=== PATIENT | female | born 1980 | race Two or more races ===

== ENCOUNTER 2016-11-23 09:37 | Inpatient (IN) | payer MEDICAID ==
[2016-11-23] MEDS ORDERED: Ondansetron 4 MG/2 ML SDV IV PRN (11:57)
[2016-11-23] MEDS ORDERED: Sodium Chloride 0.9% 10 ML Syringe FLUSH PRN (11:57)
--- NOTE | 2016-11-23 12:11 | PCM.LDHP ---
L&D History of Present Illness - General Date of Service: 11/23/16 Admit Problem/Dx: Patient Status Order with Admit Dx/Problem 11/23/16 11:57 Patient Status [ADT] Routine Admission Diagnosis/Problem Admission Diagnosis/Problem Source of Information: Patient History Limitations: Reports: No Limitations - Related Data Allergies/Adverse Reactions: Allergies Allergy/AdvReac Type Severity Reaction Status Date / Time No Known Allergies Allergy Verified 11/23/16 12:01 Past Medical History : 7 Para: 6 Other OB/BYN History: MORE-11/30/2016 H&P Review of Systems - Review of Systems: Review Of Systems: See Below General: Reports: No Symptoms HEENT: Reports: No Symptoms Pulmonary: Reports: No Symptoms Cardiovascular: Reports: No Symptoms Gastrointestinal: Reports: No Symptoms Genitourinary: Reports: No Symptoms Musculoskeletal: Reports: No Symptoms Skin: Reports: No Symptoms Psychiatric: Reports: No Symptoms Neurological: Reports: No Symptoms Hematologic/Lymphatic: Reports: No Symptoms Immunologic: Reports: No Symptoms L&D Exam - Exam Exam: See Below - Vital Signs Vital Signs: Last Vital Signs Temp 36.2 C 11/23/16 10:01 Pulse 56 L 11/23/16 10:01 Resp 16 11/23/16 10:01 BP 153/67 H 11/23/16 10:01 Pulse Ox 97 11/23/16 10:01 - OB Specific Movement: Active Heart Tones: Present Presentation: Vertex - Landers Score Landers Score Cervix Position: Anterior Landers Score Consistency: Soft Landers Score Effacement: 51-70% Landers Score Dilation: 3-4 cm Landers Score 's Station: -1 ,0 Landers Score Total: 10 - Exam General: Alert, Oriented HEENT: PERRLA, Conjunctiva Clear, EACs Clear, EOMI, Hearing Intact, Mucosa Moist & [place], Nares Patent, Normal Nasal Septum, Posterior Pharynx Clear, TMs Clear Neck: Supple, Trachea Midline Lungs: Clear to Auscultation, Normal Respiratory Effort Cardiovascular: Regular Rate, Regular Rhythm GI/Abdominal Exam: Normal Bowel Sounds, Soft, Non-Tender, No Organomegaly, No Distention, No Abnormal Bruit, No Mass, Pelvis Stable Genitourinary: Normal external exam, Normal bimanual exam Back Exam: Normal Inspection, Full Range of Motion Extremities: Normal Inspection, Normal Range of Motion, Non-Tender, No Pedal Edema, Normal Capillary Refill Skin: Warm, Dry, Intact Neurological: Cranial Nerves Intact, Reflexes Equal Bilateral DTR: 2+: Patella (L), Patella (R) Psychiatric: Alert, Normal Affect, Normal Mood - Patient Data Lab Results Last 24 hrs: Laboratory Results - last 24 hr 11/23/16 Range/Units 10:36 WBC 7.0 (4.5-11.0) K/uL RBC 3.92 (3.30-5.50) M/uL Hgb 10.7 L (12.0-15.0) g/dL Hct 33.0 L (36.0-48.0) % MCV 84 (80-98) fL MCH 27 (27-31) pg MCHC 32 (32-36) % Plt Count 138 L (150-400) K/uL Neut % (Auto) 66 (36-66) % Lymph % (Auto) 25 (24-44) % [place] % (Auto) 7 H (2-6) % Eos % (Auto) 1 L (2-4) % Baso % (Auto) 0 (0-1) % Result Diagrams: 11/23/16 10:36 - Problem List (1) Grand multipara in labor in third trimester SNOMED Code(s): 054933541, 781373312 ICD Code: O09.43 - SUPRVSN OF W GRAND MULTIPARITY, THIRD TRIMESTER Status: Acute Current Visit: Yes (2) SNOMED Code(s): 99841081 ICD Code: Z34.90 - ENCNTR FOR SUPRVSN OF NORMAL , UNSP, UNSP TRIMESTER Status: Acute Current Visit: Yes Qualifiers: Weeks of gestation: 39 weeks Qualified Code(s): Z3A.39 - 39 weeks gestation of Problem List Initiated/Reviewed/Updated: Yes Orders Last 24hrs: Active Orders 24 hr Category Date Time Status Patient Status [ADT] Routine ADT 11/23/16 11:57 Ordered Ambulate [RC] PER UNIT ROUTINE Care 11/23/16 11:57 Ordered Communication Order [RC] ASDIRECTED Care 11/23/16 11:57 Ordered Heart Tones [RC] PER UNIT ROUTINE Care 11/23/16 11:57 Ordered Notify Provider Vital Signs [RC] PRN Care 11/23/16 11:59 Ordered Notify Provider [RC] PRN Care 11/23/16 11:57 Ordered Up ad Lauren [RC] ASDIRECTED Care 11/23/16 11:57 Ordered VTE/DVT Education [RC] Click to Edit Care 11/23/16 11:59 Ordered Vital Signs [RC] PER UNIT ROUTINE Care 11/23/16 11:57 Ordered UA W/MICROSCOPIC [URIN] Routine Lab 11/23/16 10:36 Uncollected Acetaminophen [Tylenol] Med 11/23/16 11:57 Ordered 650 mg PO Q4H PRN Ondansetron [Zofran] Med 11/23/16 11:57 Ordered 4 mg IV Q4H PRN Oxytocin/Normal Saline [Pitocin in NS 20 Units/1,000 ML Med 11/23/16 10:45 Active ] 20 unit in 1,000 ml IV TITRATE Sodium Chloride 0.9% [Saline Flush] Med 11/23/16 11:57 Ordered 10 ml FLUSH ASDIRECTED PRN fentaNYL [Sublimaze] Med 11/23/16 11:57 Ordered 100 mcg IVPUSH Q1H PRN DVT/VTE Prophylaxis Reflex [OM.PC] Routine Oth 11/23/16 11:57 Ordered Saline Lock Insert [OM.PC] Routine Oth 11/23/16 11:57 Ordered Resuscitation Status Routine Resus Stat 11/23/16 11:57 Ordered Medication Orders Acetaminophen (Tylenol) 650 mg PO Q4H PRN PRN Reason: Pain (Mild 1-3) and fever Fentanyl (Sublimaze) 100 mcg IVPUSH Q1H PRN PRN Reason: Pain (moderate 4-6) Oxytocin/Sodium Chloride (Pitocin In Ns 20 Units/1,000 Ml) 20 unit in 1,000 mls @ 6 mls/hr IV TITRATE YAKELIN; 2 MUNITS/MIN PRN Reason: Protocol Ondansetron HCl (Zofran) 4 mg IV Q4H PRN PRN Reason: Nausea/Vomiting Sodium Chloride (Saline Flush) 10 ml FLUSH ASDIRECTED PRN PRN Reason: Keep Vein Open Assessment/Plan Comment:: 11/23/2016 36 yo here at 39 weeks gestation was here at clinic and found to be 3-4 cm dilated-sent to L&D for admit SVE-3-4/75/-1 Bishops Score-10 Labs-A positive, GBS negative, RPR nonreactive, Hep B negative, HIV negative Hgb-10.7 Platelet-138 Plan- Monitor for active labor Monitor heart tones Start pitocin per protocol Plan and anticipate vaginal delivery
[2016-11-23] MEDS: fentaNYL 100 MCG/2 ML SDV IVPUSH PRN ×4 (14:35→21:35)
--- NOTE | 2016-11-23 15:51 | PCM.PNLD ---
Labor Progress Note - VS & Meds Vital Signs: Last Vital Signs Temp 36.2 C 11/23/16 10:01 Pulse 56 L 11/23/16 10:01 Resp 16 11/23/16 11:57 BP 147/55 H 11/23/16 11:57 Pulse Ox 97 11/23/16 10:01 Active Medications: Current Medications Acetaminophen (Tylenol) 650 mg PO Q4H PRN PRN Reason: Pain (Mild 1-3) and fever Fentanyl (Sublimaze) 100 mcg IVPUSH Q1H PRN PRN Reason: Pain (moderate 4-6) Last Admin: 11/23/16 14:35 Dose: 100 mcg Oxytocin/Sodium Chloride (Pitocin In Ns 20 Units/1,000 Ml) 20 unit in 1,000 mls @ 6 mls/hr IV TITRATE YAKELIN; 2 MUNITS/MIN PRN Reason: Protocol Last Titration: 11/23/16 14:35 Dose: 9 munits/min, 27 mls/hr Ondansetron HCl (Zofran) 4 mg IV Q4H PRN PRN Reason: Nausea/Vomiting Sodium Chloride (Saline Flush) 10 ml FLUSH ASDIRECTED PRN PRN Reason: Keep Vein Open - Uterine Contractions Uterine Monitoring Mode: None in Use Contraction Frequency (min): 1.5-3 Contraction Duration (sec): 50-100 Contraction Intensity: Strong Uterine Resting Tone: Soft - Vaginal Exam Dilation (cm): 5 Effacement (Percent): 80 Station: -1 Cervical Position: Anterior Sterile Vaginal Exam Performed By: Jaja Cazares - Labor Progress (Free Text) Labor Progress: 11/23/2016 Patient SROM-amnisure positive SVE-5/80/-1 Daniela irregular FHTs category one Plan- Continue to monitor for active labor Continue to monitor FHTs Pain control per patient request Continue with Pitocin per protocol Plan and anticipate a vaginal delivery
[2016-11-23] MEDS ORDERED: Lactated Ringers 1,000 ML IV ONE ×2 (15:53→20:50)
--- NOTE | 2016-11-23 15:53 | PCM.PNLD ---
Labor Progress Note - VS & Meds Vital Signs: Last Vital Signs Temp 36.2 C 11/23/16 10:01 Pulse 56 L 11/23/16 10:01 Resp 16 11/23/16 11:57 BP 147/55 H 11/23/16 11:57 Pulse Ox 97 11/23/16 10:01 Active Medications: Current Medications Acetaminophen (Tylenol) 650 mg PO Q4H PRN PRN Reason: Pain (Mild 1-3) and fever Fentanyl (Sublimaze) 100 mcg IVPUSH Q1H PRN PRN Reason: Pain (moderate 4-6) Last Admin: 11/23/16 14:35 Dose: 100 mcg Oxytocin/Sodium Chloride (Pitocin In Ns 20 Units/1,000 Ml) 20 unit in 1,000 mls @ 6 mls/hr IV TITRATE YAKELIN; 2 MUNITS/MIN PRN Reason: Protocol Last Titration: 11/23/16 14:35 Dose: 9 munits/min, 27 mls/hr Ondansetron HCl (Zofran) 4 mg IV Q4H PRN PRN Reason: Nausea/Vomiting Sodium Chloride (Saline Flush) 10 ml FLUSH ASDIRECTED PRN PRN Reason: Keep Vein Open - Uterine Contractions Uterine Monitoring Mode: None in Use Contraction Frequency (min): 1.5-3 Contraction Duration (sec): 50-100 Contraction Intensity: Strong Uterine Resting Tone: Soft - Vaginal Exam Dilation (cm): 7-8 Effacement (Percent): 90 Station: -1 Cervical Position: Anterior Sterile Vaginal Exam Performed By: Jaja Cazares - Labor Progress (Free Text) Labor Progress: 11/23/2016 Patient jamia regularly now SVE-7-8/90/-1 FHTs category one 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
[2016-11-23] MEDS ORDERED: Ropivacaine 100 ML ONE (16:03)
--- NOTE | 2016-11-23 17:32 | ANES ---
DATE OF SERVICE: 11/23/2016 INDICATIONS: Mrs. Cassidy is a 36-year-old female patient, referred to me in the OB Department by Jaja Cazares. I am here to evaluate her for a labor epidural. This is her 7th baby and she is approximately 8 cm. She is in quite a bit of pain and would like to do a labor epidural. We worked throughout her consents and procedure through the teacher drama. TECHNIQUE: She was placed in a sitting position. Her back was prepped x3 with Betadine 1% lidocaine skin local was used. The epidural was placed at L3-L4 using a 17-gauge Tuohy needle in loss of resistance technique. The epidural had very good feel throughout. The epidural space was easily identified. There was negative CSF, negative blood, and negative paresthesias noted. Therefore, a catheter was threaded to 12 cm at the skin. There was negative CSF, negative blood, and negative paresthesias noted with the catheter. Therefore, a 3 mL of test dose of 1.5% lidocaine with epinephrine was given. This test dose was negative. The catheter was then secured with Tegaderm and tape and the patient was placed in the supine position. A 0.2% ropivacaine bolus of 10 mL was given. She had pretty decent relief from the bolus and her vital signs remained stable. Therefore, a 0.2% ropivacaine drip was started at 12 mL an hour. We will continue to monitor her throughout her labor and delivery stay. Sal Rouse CRNA /[id number]
[2016-11-23] MEDS ORDERED: Lanolin 100% Cream 40 GM Tube TOP PRN (17:33)
[2016-11-23] MEDS ORDERED: Ibuprofen 600 MG Tab PO PRN (17:33)
--- NOTE | 2016-11-23 17:54 | PCM.DEL ---
L & D Note - General Info Date of Service: 11/23/16 Mother's Due Date: 11/30/16 - Delivery Note Labor: Augmented by Oxytocin Infant Delivery Method: Spontaneous Vaginal Delivery Delivery Mode: Spontaneous Presentation: Vertex Nuchal Cord: None Anesthesia Type: Epidural Amniotic Fluid Description: Clear Episiotomy Type: None Laceration: None Placenta: Intact, Spontaneous Cord: 3 Vessels Resuscitation Needed: No [place]: Bulb Syringe, Stimulated, Warmed, [place] Used Provider: Jaja Cazares Score 1 min: 9 Score 5 min: 9 Score 10 min: 10 Second Stage Interventions: Reports: Encouragement Given, Pushing Effectively Delivery Comments (Free Text/Narrative):: 11/23/2016 36 G7 now P7 at 39 0/7 gestational weeks delivered a viable male on 11/23 @ 1720 in MATILDA position. APGARS-9/9/10, weight-8lbs 13.7oz, length-21 inches, bulb suctioned, dried and stimulated, cord double clamped by provider, and father of cut the cord- three vessel cord Placenta delivered intact, no lacerations of perineum, vagina, cervix, or rectum EBL-250ml Mother now stable with infant stable and skin to skin - General Info Date of Service: 11/23/16 Admission Dx/Problem (Free Text): Patient Status Order with Admit Dx/Problem 11/23/16 11:57 Patient Status [ADT] Routine Admission Diagnosis/Problem Admission Diagnosis/Problem Functional Status: Reports: Pain Controlled - Review of Systems General: Reports: No Symptoms HEENT: Reports: No Symptoms Pulmonary: Reports: No Symptoms Cardiovascular: Reports: No Symptoms Gastrointestinal: Reports: No Symptoms Genitourinary: Reports: No Symptoms Musculoskeletal: Reports: No Symptoms Skin: Reports: No Symptoms Neurological: Reports: No Symptoms Psychiatric: Reports: No Symptoms - Patient Data Vitals - Most Recent: Last Vital Signs Temp 36.2 C 11/23/16 10:01 Pulse 64 11/23/16 16:30 Resp 16 11/23/16 16:30 BP 142/83 H 11/23/16 16:30 Pulse Ox 97 11/23/16 16:30 Weight - Most Recent: 83.915 kg Lab Results Last 24 Hours: Laboratory Results - last 24 hr 11/23/16 11/23/16 11/23/16 Range/Units 10:36 10:36 13:12 WBC 7.0 (4.5-11.0) K/uL RBC 3.92 (3.30-5.50) M/uL Hgb 10.7 L (12.0-15.0) g/dL Hct 33.0 L (36.0-48.0) % MCV 84 (80-98) fL MCH 27 (27-31) pg MCHC 32 (32-36) % Plt Count 138 L (150-400) K/uL Neut % (Auto) 66 (36-66) % Lymph % (Auto) 25 (24-44) % [place] % (Auto) 7 H (2-6) % Eos % (Auto) 1 L (2-4) % Baso % (Auto) 0 (0-1) % Urine Color Yellow Urine Appearance Cloudy Urine pH 7.0 (4.5-8.0) Ur Specific [place] 1.010 (1.008-1.030) Urine Protein 30 H (NEGATIVE) mg/dL Urine Glucose (UA) Normal (NEGATIVE) mg/dL Urine Ketones Negative (NEGATIVE) mg/dL Urine Occult Blood Moderate (NEGATIVE) Urine Nitrite Negative (NEGATIVE) Urine Bilirubin Negative (NEGATIVE) Urine Urobilinogen Normal (NORMAL) mg/dL Ur Leukocyte Esterase Moderate (NEGATIVE) Urine RBC 5-10 H (0-5) Urine WBC 10-20 H (0-5) Ur Epithelial Cells Many Amorphous Sediment Moderate Urine Bacteria Moderate Urine Mucus Few Urine Other See note Urinalysis Comment Clue cells seen Membrane Rupture Positive H (NEGATIVE) Med Orders - Current: Current Medications Acetaminophen (Tylenol) 650 mg PO Q4H PRN PRN Reason: Pain (Mild 1-3) and fever Hydrocodone Bitart/Acetaminophen ([place] 325-5 Mg) 1 - 2 tab PO Q4H PRN PRN Reason: Pain (moderate 4-6) Emollient Ointment (Lansinoh Hpa) 1 gm TOP ASDIRECTED PRN PRN Reason: Sore Nipples Fentanyl (Sublimaze) 100 mcg IVPUSH Q1H PRN PRN Reason: Pain (moderate 4-6) Last Admin: 11/23/16 14:35 Dose: 100 mcg Ferrous Sulfate (Ferrous Sulfate) 325 mg PO BID YAKELIN Oxytocin/Sodium Chloride (Pitocin In Ns 20 Units/1,000 Ml) 20 unit in 1,000 mls @ 6 mls/hr IV TITRATE YAKELIN; 2 MUNITS/MIN PRN Reason: Protocol Last Titration: 11/23/16 14:35 Dose: 9 munits/min, 27 mls/hr Oxytocin/Sodium Chloride (Pitocin In Ns 20 Units/1,000 Ml) 20 unit in 1,000 mls @ 2,997 mls/hr IV ONETIME ONE; 999 MUNITS/MIN PRN Reason: Protocol Stop: 11/23/16 17:58 Ibuprofen (Motrin) 600 mg PO Q6H PRN PRN Reason: mild pain or fever Metronidazole (Metronidazole) 500 mg PO Q12HR YAKELIN Ondansetron HCl (Zofran) 4 mg IV Q4H PRN PRN Reason: Nausea/Vomiting Prenat Multivit/[place]/Iron/Folic Ac ( Plus Iron) 1 each PO DAILY YAKELIN Sodium Chloride (Saline Flush) 10 ml FLUSH ASDIRECTED PRN PRN Reason: Keep Vein Open Discontinued Medications Lactated Ringer's (Ringers, Lactated) 1,000 mls @ 999 mls/hr IV .BOLUS ONE Stop: 11/23/16 16:53 Ropivacaine (Naropin 0.2%) Confirm Administered Dose 100 mls @ as directed .ROUTE .STK-MED ONE Stop: 11/23/16 16:04 - Exam General: Alert, Oriented HEENT: Pupils Equal, Pupils Reactive, EOMI, Mucous Membr. Moist/[place] Neck: Supple Lungs: Clear to Auscultation, Normal Respiratory Effort Cardiovascular: Regular Rate, Regular Rhythm GI/Abdominal Exam: Normal Bowel Sounds, Soft, Non-Tender, No Organomegaly, No Distention, No Abnormal Bruit, No Mass, Pelvis Stable (Female) Exam: Normal External Exam, Normal Bimanual Exam Back Exam: Normal Inspection, Full Range of Motion Extremities: Normal Inspection, Normal Range of Motion, Non-Tender, No Pedal Edema, Normal Capillary Refill Skin: Warm, Dry, Intact Wound/Incisions: Healing Well Neurological: No New Focal Deficit Psy/Mental Status: Alert, Normal Affect, Normal Mood - Problem List & Annotations (1) Grand multipara in labor in third trimester SNOMED Code(s): 252969963, 436507837 Code(s): O09.43 - SUPRVSN OF W GRAND MULTIPARITY, THIRD TRIMESTER Status: Acute Current Visit: Yes (2) SNOMED Code(s): 40333351 Code(s): Z34.90 - ENCNTR FOR SUPRVSN OF NORMAL , UNSP, UNSP TRIMESTER Status: Acute Current Visit: Yes Qualifiers: Weeks of gestation: 39 weeks Qualified Code(s): Z3A.39 - 39 weeks gestation of (3) Bacterial vaginosis SNOMED Code(s): 119787324 Code(s): N76.0 - ACUTE VAGINITIS; B96.89 - OTH BACTERIAL AGENTS THE CAUSE OF DISEASES CLASSD ELSWHR Status: Acute Current Visit: Yes (4) Normal vaginal delivery SNOMED Code(s): 71153652 Code(s): O80 - ENCOUNTER FOR FULL-TERM UNCOMPLICATED DELIVERY Status: Acute Current Visit: Yes (5) Anemia complicating SNOMED Code(s): 18993931 Code(s): O99.019 - ANEMIA COMPLICATING , UNSPECIFIED TRIMESTER Status: Acute Current Visit: Yes - Problem List Review Problem List Initiated/Reviewed/Updated: Yes - My Orders Last 24 Hours: My Active Orders 11/23/16 10:45 Oxytocin/Normal Saline [Pitocin in NS 20 Units/1,000 ML] 20 unit in 1,000 ml IV TITRATE 11/23/16 11:57 Patient Status [ADT] Routine Ambulate [RC] PER UNIT ROUTINE Communication Order [RC] ASDIRECTED Notify Provider [RC] PRN Up ad Lauren [RC] ASDIRECTED Vital Signs [RC] PER UNIT ROUTINE Acetaminophen [Tylenol] 650 mg PO Q4H PRN Ondansetron [Zofran] 4 mg IV Q4H PRN Sodium Chloride 0.9% [Saline Flush] 10 ml FLUSH ASDIRECTED PRN fentaNYL [Sublimaze] 100 mcg IVPUSH Q1H PRN DVT/VTE Prophylaxis Reflex [OM.PC] Routine Saline Lock Insert [OM.PC] Routine Resuscitation Status Routine 11/23/16 11:59 Notify Provider Vital Signs [RC] PRN VTE/DVT Education [RC] Click to Edit 11/23/16 15:53 Local Anesthetic Infusion Pump [RC] ASDIRECTED PCEA Epidural [RC] ASDIRECTED Epidural Catheter Management [OM.PC] Routine 11/23/16 17:33 Patient Status [ADT] Routine Vital Signs [RC] PFP Acetaminophen/HYDROcodone [[place] 325-5 MG] 1 - 2 tab PO Q4H PRN Ibuprofen [Motrin] 600 mg PO Q6H PRN Lanolin [Lansinoh HPA] 1 gm TOP ASDIRECTED PRN Assess Lochia [WOMSER] Per Unit Routine Assess Uterine Involution [WOMSER] Per Unit Routine 11/23/16 17:34 Perineal Care [OM.PC] Per Unit Routine 11/23/16 17:38 Oxytocin/Normal Saline [Pitocin in NS 20 Units/1,000 ML] 20 unit in 1,000 ml IV ONETIME 11/23/16 17:45 metroNIDAZOLE 500 mg PO Q12HR 11/23/16 21:00 Ferrous Sulfate 325 mg PO BID 11/24/16 06:00 CBC W/O DIFF,HEMOGRAM [HEME] Routine 11/24/16 09:00 Vit with Ca/FA/Iron [ Plus Iron] 1 each PO DAILY - Assessment Assessment:: 11/23/2016 Normal Spontaneous Vaginal Delivery Fundus Firm Planning on Bacterial vaginosis Grand multip and parity Anemia in - Plan Plan:: 11/23/2016 36 yo here at 39 weeks gestation was here at clinic and found to be 3-4 cm dilated-sent to L&D for admit SVE-3-4/75/-1 Bishops Score-10 Labs-A positive, GBS negative, RPR nonreactive, Hep B negative, HIV negative Hgb-10.7 Platelet-138 Plan- Monitor for active labor Monitor heart tones Start pitocin per protocol Plan and anticipate vaginal delivery 11/23/2016 Routine Cares Support and Encourage Iron for anemia start tonight Antibiotic for BV start tonight Plan discharge in 24-48hrs per patient request
[2016-11-23] MEDS: metroNIDAZOLE 250 MG Tab PO SCH (18:28)
[2016-11-23] MEDS: Acetaminophen/HYDROcodone 325-5 MG Tab PO PRN (20:43)
[2016-11-23] MEDS ORDERED: Misoprostol 200 MCG Tab RECTAL ONE (20:59)
[2016-11-23] MEDS ORDERED: Misoprostol 200 MCG Tab ONE (21:40)
[2016-11-23] MEDS ORDERED: Carboprost Tromethamine 250 MCG/1 ML Amp ONE (21:41)
[2016-11-23] MEDS ORDERED: Methylergonovine 0.2 MG/1 ML Amp IM STA (21:42)
[2016-11-23] MEDS: Lactated Ringers 1,000 ML IV SCH (21:57)
--- NOTE | 2016-11-23 22:10 | PCM.PN ---
- General Info Date of Service: 11/23/16 Admission Dx/Problem (Free Text): Called to see patient for hemorrhage at approximately 2100. Patient delivered earlier today via . When nurses went to move her to room they noted significant bleeding in excess of 1 liter. CBC and Type and Cross for 2 units PRBC were drawn. Her hgb was 8 with active bleeding and platelets > 100K. hemorrhage protocol initiated with bolus 1 L LR and a we obtained a second large bore IV. She was not noted to have HTN or asthma. She was given cytotec 600 mcg pr. Her vagina and uterus were rapidly explored. Her uterus was at umbilicus +2 and boggy, but did firm up with massage. Approximately 800 ml of clots were removed from the uterus. Pitocin 20 units per 1 L was infused through her second IV. Her bleeding gradually slowed. She was given methergine 0.2 mg IM. We reviewed with Malia the patient what was happening through a [place] phone mannequin molder. She called her and he came in. She did receive Fentanyl for pain control after initial vaginal exploration. There was not other trauma to the vaginal vault. Quick look US did not reveal any retained tissue in the uterus. Throughout evaluation and resuscitation her SBP was 90-120. She was alert while lying flat. Functional Status: Reports: New Symptoms - Review of Systems General: Reports: No Symptoms HEENT: Reports: No Symptoms Pulmonary: Reports: No Symptoms Cardiovascular: Reports: No Symptoms Gastrointestinal: Reports: No Symptoms Genitourinary: Reports: Pain, Other (vaginal bleeding) Musculoskeletal: Reports: No Symptoms Skin: Reports: No Symptoms Neurological: Reports: No Symptoms Psychiatric: Reports: No Symptoms - Patient Data Vitals - Most Recent: Last Vital Signs Temp 98.5 F 11/23/16 19:30 Pulse 96 11/23/16 19:30 Resp 18 11/23/16 19:30 BP 144/71 H 11/23/16 19:30 Pulse Ox 96 11/23/16 19:30 Weight - Most Recent: 185 lb Lab Results Last 24 Hours: Laboratory Results - last 24 hr 11/23/16 11/23/16 11/23/16 Range/Units 10:36 10:36 13:12 WBC 7.0 (4.5-11.0) K/uL RBC 3.92 (3.30-5.50) M/uL Hgb 10.7 L (12.0-15.0) g/dL Hct 33.0 L (36.0-48.0) % MCV 84 (80-98) fL MCH 27 (27-31) pg MCHC 32 (32-36) % Plt Count 138 L (150-400) K/uL Neut % (Auto) 66 (36-66) % Lymph % (Auto) 25 (24-44) % [place] % (Auto) 7 H (2-6) % Eos % (Auto) 1 L (2-4) % Baso % (Auto) 0 (0-1) % Urine Color Yellow Urine Appearance Cloudy Urine pH 7.0 (4.5-8.0) Ur Specific [place] 1.010 (1.008-1.030) Urine Protein 30 H (NEGATIVE) mg/dL Urine Glucose (UA) Normal (NEGATIVE) mg/dL Urine Ketones Negative (NEGATIVE) mg/dL Urine Occult Blood Moderate (NEGATIVE) Urine Nitrite Negative (NEGATIVE) Urine Bilirubin Negative (NEGATIVE) Urine Urobilinogen Normal (NORMAL) mg/dL Ur Leukocyte Esterase Moderate (NEGATIVE) Urine RBC 5-10 H (0-5) Urine WBC 10-20 H (0-5) Ur Epithelial Cells Many Amorphous Sediment Moderate Urine Bacteria Moderate Urine Mucus Few Urine Other See note Urinalysis Comment Clue cells seen Membrane Rupture Positive H (NEGATIVE) Urine Opiates Screen (NEGATIVE) Ur Oxycodone Screen (NEGATIVE) Urine Methadone Screen (NEGATIVE) Ur Propoxyphene Screen (NEGATIVE) Ur Barbiturates Screen (NEGATIVE) Ur Tricyclics Screen (NEGATIVE) Ur Phencyclidine Scrn (NEGATIVE) Ur Amphetamine Screen (NEGATIVE) U Methamphetamines Scrn (NEGATIVE) Urine MDMA Screen (NEGATIVE) U Benzodiazepines Scrn (NEGATIVE) U Cocaine Metab Screen (NEGATIVE) U Marijuana (THC) Screen (NEGATIVE) 11/23/16 11/23/16 Range/Units 20:10 20:52 WBC 11.9 H (4.5-11.0) K/uL RBC 3.17 L (3.30-5.50) M/uL Hgb 8.6 L D (12.0-15.0) g/dL Hct 26.7 L (36.0-48.0) % MCV 84 (80-98) fL MCH 27 (27-31) pg MCHC 32 (32-36) % Plt Count 136 L (150-400) K/uL Neut % (Auto) (36-66) % Lymph % (Auto) (24-44) % [place] % (Auto) (2-6) % Eos % (Auto) (2-4) % Baso % (Auto) (0-1) % Urine Color Urine Appearance Urine pH (4.5-8.0) Ur Specific [place] (1.008-1.030) Urine Protein (NEGATIVE) mg/dL Urine Glucose (UA) (NEGATIVE) mg/dL Urine Ketones (NEGATIVE) mg/dL Urine Occult Blood (NEGATIVE) Urine Nitrite (NEGATIVE) Urine Bilirubin (NEGATIVE) Urine Urobilinogen (NORMAL) mg/dL Ur Leukocyte Esterase (NEGATIVE) Urine RBC (0-5) Urine WBC (0-5) Ur Epithelial Cells Amorphous Sediment Urine Bacteria Urine Mucus Urine Other Urinalysis Comment Membrane Rupture (NEGATIVE) Urine Opiates Screen Negative (NEGATIVE) Ur Oxycodone Screen Negative (NEGATIVE) Urine Methadone Screen Negative (NEGATIVE) Ur Propoxyphene Screen Negative (NEGATIVE) Ur Barbiturates Screen Negative (NEGATIVE) Ur Tricyclics Screen Negative (NEGATIVE) Ur Phencyclidine Scrn Negative (NEGATIVE) Ur Amphetamine Screen Negative (NEGATIVE) U Methamphetamines Scrn Negative (NEGATIVE) Urine MDMA Screen Negative (NEGATIVE) U Benzodiazepines Scrn Negative (NEGATIVE) U Cocaine Metab Screen Negative (NEGATIVE) U Marijuana (THC) Screen Negative (NEGATIVE) Med Orders - Current: Current Medications Acetaminophen (Tylenol) 650 mg PO Q4H PRN PRN Reason: Pain (Mild 1-3) and fever Hydrocodone Bitart/Acetaminophen ([place] 325-5 Mg) 1 - 2 tab PO Q4H PRN PRN Reason: Pain (moderate 4-6) Last Admin: 11/23/16 20:43 Dose: 2 tab Emollient Ointment (Lansinoh Hpa) 1 gm TOP ASDIRECTED PRN PRN Reason: Sore Nipples Fentanyl (Sublimaze) 100 mcg IVPUSH Q1H PRN PRN Reason: Pain (moderate 4-6) Last Admin: 11/23/16 21:18 Dose: 25 mcg Fentanyl (Sublimaze) 50 mcg IVPUSH Q6H PRN PRN Reason: Pain (severe 7-10) Last Admin: 07/28/17 21:35 Dose: 25 mcg Ferrous Sulfate (Ferrous Sulfate) 325 mg PO BID YAKELIN Oxytocin/Sodium Chloride (Pitocin In Ns 20 Units/1,000 Ml) 20 unit in 1,000 mls @ 6 mls/hr IV TITRATE YAKELIN; 2 MUNITS/MIN PRN Reason: Protocol Last Titration: 11/23/16 14:35 Dose: 9 munits/min, 27 mls/hr Lactated Ringer's (Ringers, Lactated) 1,000 mls @ 999 mls/hr IV BOLUS ONE Stop: 11/23/16 21:50 Ibuprofen (Motrin) 600 mg PO Q6H PRN PRN Reason: mild pain or fever Last Admin: 11/23/16 18:23 Dose: 600 mg Metronidazole (Metronidazole) 500 mg PO BID YAKELIN Stop: 11/30/16 09:01 Last Admin: 11/23/16 18:28 Dose: 500 mg Ondansetron HCl (Zofran) 4 mg IV Q4H PRN PRN Reason: Nausea/Vomiting Prenat Multivit/[place]/Iron/Folic Ac ( Plus Iron) 1 each PO DAILY YAKELIN Sodium Chloride (Saline Flush) 10 ml FLUSH ASDIRECTED PRN PRN Reason: Keep Vein Open Discontinued Medications Carboprost Tromethamine (Hemabate Ds) Confirm Administered Dose 250 mcg .ROUTE .STK-MED ONE Stop: 11/23/16 21:42 Lactated Ringer's (Ringers, Lactated) 1,000 mls @ 999 mls/hr IV .BOLUS ONE Stop: 11/23/16 16:53 Last Admin: 11/23/16 15:18 Dose: 999 mls/hr Ropivacaine (Naropin 0.2%) Confirm Administered Dose 100 mls @ as directed .ROUTE .STK-MED ONE Stop: 11/23/16 16:04 Oxytocin/Sodium Chloride (Pitocin In Ns 20 Units/1,000 Ml) 20 unit in 1,000 mls @ 2,997 mls/hr IV ONETIME ONE; 999 MUNITS/MIN PRN Reason: Protocol Stop: 11/23/16 17:58 Last Admin: 11/23/16 20:25 Dose: Not Given Methylergonovine Maleate (Methergine) 0.2 mg IM Q4H STA Stop: 11/23/16 21:43 Last Admin: 11/23/16 21:48 Dose: 0.2 mg Misoprostol (Cytotec) 600 mcg RECTAL STAT ONE Stop: 11/23/16 21:00 Last Admin: 11/23/16 21:00 Dose: 600 mcg Misoprostol (Cytotec) Confirm Administered Dose 800 mcg .ROUTE .STK-MED ONE Stop: 11/23/16 21:41 - Exam Lungs: Clear to Auscultation Cardiovascular: Regular Rate GI/Abdominal Exam: Normal Bowel Sounds (Female) Exam: Enlarged Uterus - Problem List & Annotations (1) hemorrhage, delivered SNOMED Code(s): 18261225 Code(s): O72.1 - OTHER IMMEDIATE HEMORRHAGE Status: Acute Priority: High Current Visit: Yes - Problem List Review Problem List Initiated/Reviewed/Updated: Yes - My Orders Last 24 Hours: My Active Orders 11/23/16 20:50 Lactated Ringers [Ringers, Lactated] 1,000 ml IV BOLUS 11/23/16 21:05 fentaNYL [Sublimaze] 50 mcg IVPUSH Q6H PRN - Assessment Assessment:: 11/23/2016 Normal Spontaneous Vaginal Delivery Fundus Firm Planning on Bacterial vaginosis Grand multip and parity Anemia in Hemorrhage - Plan Plan:: 11/23/2016 36 yo here at 39 weeks gestation was here at clinic and found to be 3-4 cm dilated-sent to L&D for admit SVE-3-4/75/-1 [place] Score-10 Labs-A positive, GBS negative, RPR nonreactive, Hep B negative, HIV negative Hgb-10.7 Platelet-138 Plan- Monitor for active labor Monitor heart tones Start pitocin per protocol Plan and anticipate vaginal delivery 11/23/2016 Routine Cares Support and Encourage Iron for anemia start tonight Antibiotic for BV start tonight Plan discharge in 24-48hrs per patient request Close monitoring, repeat hgb in 2 hours. Transfuse if hgb < 7. Continue LR at 150 ml/hr. Continue methergine 0.2 mg po q 2 hours po x 4 doses.
[2016-11-23] MEDS: Ferrous Sulfate 325 MG Tab PO SCH (22:38)
[2016-11-24] MEDS: Methylergonovine 0.2 MG Tab PO SCH ×4 (00:23→06:24)
[2016-11-24] MEDS: Lactated Ringers 1,000 ML IV SCH (04:14)
[2016-11-24] MEDS: Acetaminophen/HYDROcodone 325-5 MG Tab PO PRN ×2 (04:14→18:58)
[2016-11-24] MEDS: Acetaminophen 325 MG Tab PO PRN ×2 (08:08→12:43)
[2016-11-24] MEDS: metroNIDAZOLE 250 MG Tab PO SCH ×2 (08:09→21:02)
[2016-11-24] MEDS: Ferrous Sulfate 325 MG Tab PO SCH ×2 (08:09→21:02)
[2016-11-24] MEDS: Prenatal Multivitamin with Calcium/Folic Acid/Iron Tab PO SCH (08:09)
--- NOTE | 2016-11-24 09:52 | PCM.PNPP ---
- General Info Date of Service: 11/24/16 Admission Dx/Problem (Free Text): Mom doing well today. Minimal bleeding. Able to walk to bathroom. Bottlefeeding. Minimal pain. Tolerating food and fluids. Functional Status: Reports: Pain Controlled - Review of Systems General: Reports: No Symptoms HEENT: Reports: No Symptoms Pulmonary: Reports: No Symptoms Cardiovascular: Reports: No Symptoms Gastrointestinal: Reports: No Symptoms Genitourinary: Reports: No Symptoms Musculoskeletal: Reports: No Symptoms Skin: Reports: No Symptoms Neurological: Reports: No Symptoms Psychiatric: Reports: No Symptoms - General Info Date of Service: 11/24/16 - Patient Data Vital Signs - Most Recent: Last Vital Signs Temp 99.4 F 11/24/16 02:28 Pulse 59 L 11/24/16 04:07 Resp 16 11/24/16 04:07 BP 124/68 11/24/16 04:07 Pulse Ox 96 11/23/16 19:30 Weight - Most Recent: 185 lb I&O - Last 24 Hours: Intake & Output 11/23/16 11/24/16 11/24/16 22:59 06:59 14:59 Intake Total 240 Balance 240 Lab Results - Last 24 Hours: Laboratory Results - last 24 hr 11/23/16 11/23/16 11/23/16 Range/Units 10:36 10:36 13:12 WBC 7.0 (4.5-11.0) K/uL RBC 3.92 (3.30-5.50) M/uL Hgb 10.7 L (12.0-15.0) g/dL Hct 33.0 L (36.0-48.0) % MCV 84 (80-98) fL MCH 27 (27-31) pg MCHC 32 (32-36) % Plt Count 138 L (150-400) K/uL Neut % (Auto) 66 (36-66) % Lymph % (Auto) 25 (24-44) % [place] % (Auto) 7 H (2-6) % Eos % (Auto) 1 L (2-4) % Baso % (Auto) 0 (0-1) % Urine Color Yellow Urine Appearance Cloudy Urine pH 7.0 (4.5-8.0) Ur Specific [place] 1.010 (1.008-1.030) Urine Protein 30 H (NEGATIVE) mg/dL Urine Glucose (UA) Normal (NEGATIVE) mg/dL Urine Ketones Negative (NEGATIVE) mg/dL Urine Occult Blood Moderate (NEGATIVE) Urine Nitrite Negative (NEGATIVE) Urine Bilirubin Negative (NEGATIVE) Urine Urobilinogen Normal (NORMAL) mg/dL Ur Leukocyte Esterase Moderate (NEGATIVE) Urine RBC 5-10 H (0-5) Urine WBC 10-20 H (0-5) Ur Epithelial Cells Many Amorphous Sediment Moderate Urine Bacteria Moderate Urine Mucus Few Urine Other See note Urinalysis Comment Clue cells seen Membrane Rupture Positive H (NEGATIVE) Urine Opiates Screen (NEGATIVE) Ur Oxycodone Screen (NEGATIVE) Urine Methadone Screen (NEGATIVE) Ur Propoxyphene Screen (NEGATIVE) Ur Barbiturates Screen (NEGATIVE) Ur Tricyclics Screen (NEGATIVE) Ur Phencyclidine Scrn (NEGATIVE) Ur Amphetamine Screen (NEGATIVE) U Methamphetamines Scrn (NEGATIVE) Urine MDMA Screen (NEGATIVE) U Benzodiazepines Scrn (NEGATIVE) U Cocaine Metab Screen (NEGATIVE) U Marijuana (THC) Screen (NEGATIVE) Blood Type Gel Antibody Screen Crossmatch 11/23/16 11/23/16 11/23/16 Range/Units 20:10 20:52 21:00 WBC 11.9 H (4.5-11.0) K/uL RBC 3.17 L (3.30-5.50) M/uL Hgb 8.6 L D (12.0-15.0) g/dL Hct 26.7 L (36.0-48.0) % MCV 84 (80-98) fL MCH 27 (27-31) pg MCHC 32 (32-36) % Plt Count 136 L (150-400) K/uL Neut % (Auto) (36-66) % Lymph % (Auto) (24-44) % [place] % (Auto) (2-6) % Eos % (Auto) (2-4) % Baso % (Auto) (0-1) % Urine Color Urine Appearance Urine pH (4.5-8.0) Ur Specific [place] (1.008-1.030) Urine Protein (NEGATIVE) mg/dL Urine Glucose (UA) (NEGATIVE) mg/dL Urine Ketones (NEGATIVE) mg/dL Urine Occult Blood (NEGATIVE) Urine Nitrite (NEGATIVE) Urine Bilirubin (NEGATIVE) Urine Urobilinogen (NORMAL) mg/dL Ur Leukocyte Esterase (NEGATIVE) Urine RBC (0-5) Urine WBC (0-5) Ur Epithelial Cells Amorphous Sediment Urine Bacteria Urine Mucus Urine Other Urinalysis Comment Membrane Rupture (NEGATIVE) Urine Opiates Screen Negative (NEGATIVE) Ur Oxycodone Screen Negative (NEGATIVE) Urine Methadone Screen Negative (NEGATIVE) Ur Propoxyphene Screen Negative (NEGATIVE) Ur Barbiturates Screen Negative (NEGATIVE) Ur Tricyclics Screen Negative (NEGATIVE) Ur Phencyclidine Scrn Negative (NEGATIVE) Ur Amphetamine Screen Negative (NEGATIVE) U Methamphetamines Scrn Negative (NEGATIVE) Urine MDMA Screen Negative (NEGATIVE) U Benzodiazepines Scrn Negative (NEGATIVE) U Cocaine Metab Screen Negative (NEGATIVE) U Marijuana (THC) Screen Negative (NEGATIVE) Blood Type A POSITIVE Gel Antibody Screen Negative Crossmatch See Detail 11/23/16 11/24/16 Range/Units 23:00 04:15 WBC 12.4 H 11.2 H (4.5-11.0) K/uL RBC 3.11 L 2.69 L (3.30-5.50) M/uL Hgb 8.5 L 7.4 L (12.0-15.0) g/dL Hct 26.2 L 22.8 L (36.0-48.0) % MCV 84 85 (80-98) fL MCH 27 28 (27-31) pg MCHC 32 33 (32-36) % Plt Count 131 L 112 L (150-400) K/uL Neut % (Auto) (36-66) % Lymph % (Auto) (24-44) % [place] % (Auto) (2-6) % Eos % (Auto) (2-4) % Baso % (Auto) (0-1) % Urine Color Urine Appearance Urine pH (4.5-8.0) Ur Specific [place] (1.008-1.030) Urine Protein (NEGATIVE) mg/dL Urine Glucose (UA) (NEGATIVE) mg/dL Urine Ketones (NEGATIVE) mg/dL Urine Occult Blood (NEGATIVE) Urine Nitrite (NEGATIVE) Urine Bilirubin (NEGATIVE) Urine Urobilinogen (NORMAL) mg/dL Ur Leukocyte Esterase (NEGATIVE) Urine RBC (0-5) Urine WBC (0-5) Ur Epithelial Cells Amorphous Sediment Urine Bacteria Urine Mucus Urine Other Urinalysis Comment Membrane Rupture (NEGATIVE) Urine Opiates Screen (NEGATIVE) Ur Oxycodone Screen (NEGATIVE) Urine Methadone Screen (NEGATIVE) Ur Propoxyphene Screen (NEGATIVE) Ur Barbiturates Screen (NEGATIVE) Ur Tricyclics Screen (NEGATIVE) Ur Phencyclidine Scrn (NEGATIVE) Ur Amphetamine Screen (NEGATIVE) U Methamphetamines Scrn (NEGATIVE) Urine MDMA Screen (NEGATIVE) U Benzodiazepines Scrn (NEGATIVE) U Cocaine Metab Screen (NEGATIVE) U Marijuana (THC) Screen (NEGATIVE) Blood Type Gel Antibody Screen Crossmatch Med Orders - Current: Current Medications Acetaminophen (Tylenol) 650 mg PO Q4H PRN PRN Reason: Pain (Mild 1-3) and fever Last Admin: 11/24/16 08:08 Dose: 650 mg Hydrocodone Bitart/Acetaminophen ([place] 325-5 Mg) 1 - 2 tab PO Q4H PRN PRN Reason: Pain (moderate 4-6) Last Admin: 11/24/16 04:14 Dose: 1 tab Emollient Ointment (Lansinoh Hpa) 1 gm TOP ASDIRECTED PRN PRN Reason: Sore Nipples Fentanyl (Sublimaze) 100 mcg IVPUSH Q1H PRN PRN Reason: Pain (moderate 4-6) Last Admin: 11/23/16 14:35 Dose: 100 mcg Fentanyl (Sublimaze) 50 mcg IVPUSH Q6H PRN PRN Reason: Pain (severe 7-10) Last Admin: 11/23/16 21:35 Dose: 25 mcg Ferrous Sulfate (Ferrous Sulfate) 325 mg PO BID YAKELIN Last Admin: 11/24/16 08:09 Dose: 325 mg Oxytocin/Sodium Chloride (Pitocin In Ns 20 Units/1,000 Ml) 20 unit in 1,000 mls @ 6 mls/hr IV TITRATE YAKELIN; 2 MUNITS/MIN PRN Reason: Protocol Last Titration: 11/23/16 14:35 Dose: 9 munits/min, 27 mls/hr Lactated Ringer's (Ringers, Lactated) 1,000 mls @ 200 mls/hr IV ASDIRECTED YAKELIN Last Admin: 11/24/16 04:14 Dose: 200 mls/hr Oxytocin/Sodium Chloride (Pitocin In Ns 20 Units/1,000 Ml) 20 unit in 1,000 mls @ 2,997 mls/hr IV STAT YAKELIN; 999 MUNITS/MIN PRN Reason: Protocol Last Admin: 11/23/16 21:10 Dose: 999 munits/min, 2,997 mls/hr Metronidazole (Metronidazole) 500 mg PO BID YAKELIN Stop: 11/30/16 09:01 Last Admin: 11/24/16 08:09 Dose: 500 mg Ondansetron HCl (Zofran) 4 mg IV Q4H PRN PRN Reason: Nausea/Vomiting Prenat Multivit/[place]/Iron/Folic Ac ( Plus Iron) 1 each PO DAILY YAKELIN Last Admin: 11/24/16 08:09 Dose: 1 each Sodium Chloride (Saline Flush) 10 ml FLUSH ASDIRECTED PRN PRN Reason: Keep Vein Open Discontinued Medications Carboprost Tromethamine (Hemabate Ds) Confirm Administered Dose 250 mcg .ROUTE .STK-MED ONE Stop: 11/23/16 21:42 Last Admin: 11/23/16 22:36 Dose: Not Given Lactated Ringer's (Ringers, Lactated) 1,000 mls @ 999 mls/hr IV .BOLUS ONE Stop: 11/23/16 16:53 Last Admin: 11/23/16 15:18 Dose: 999 mls/hr Ropivacaine (Naropin 0.2%) Confirm Administered Dose 100 mls @ as directed .ROUTE .STK-MED ONE Stop: 11/23/16 16:04 Oxytocin/Sodium Chloride (Pitocin In Ns 20 Units/1,000 Ml) 20 unit in 1,000 mls @ 2,997 mls/hr IV ONETIME ONE; 999 MUNITS/MIN PRN Reason: Protocol Stop: 11/23/16 17:58 Last Admin: 11/23/16 20:25 Dose: Not Given Lactated Ringer's (Ringers, Lactated) 1,000 mls @ 999 mls/hr IV BOLUS ONE Stop: 11/23/16 21:50 Last Admin: 11/23/16 20:50 Dose: 999 mls/hr Ibuprofen (Motrin) 600 mg PO Q6H PRN PRN Reason: mild pain or fever Last Admin: 11/23/16 18:23 Dose: 600 mg Methylergonovine Maleate (Methergine) 0.2 mg IM Q4H STA Stop: 11/23/16 21:43 Last Admin: 11/23/16 21:48 Dose: 0.2 mg Methylergonovine Maleate (Methergine) 0.2 mg PO Q2H YAKELIN Stop: 11/24/16 06:00 Last Admin: 11/24/16 06:24 Dose: 0.2 mg Misoprostol (Cytotec) 600 mcg RECTAL STAT ONE Stop: 11/23/16 21:00 Last Admin: 11/23/16 21:00 Dose: 600 mcg Misoprostol (Cytotec) Confirm Administered Dose 800 mcg .ROUTE .STK-MED ONE Stop: 11/23/16 21:41 Last Admin: 11/23/16 22:36 Dose: Not Given - Interaction Infant Disposition, : [place] in Room with Family Infant Interaction: Holding Infant Feeding: Bottle Fed Infant Support Person: , Friend - Recovery Exam Fundal Tone: Firm Fundal Level: 1 Fingerbreadths Below Umbilicus Fundal Placement: Midline Lochia Amount: Small Lochia Color: [place]/Red Perineum Description: Intact, Minimal Bruising/Swelling Episiotomy/Laceration: None Urinary Elimination: Voided Other Urinary Elimination, : will attempt to void and reassess - Exam General: Alert, Oriented Lungs: Clear to Auscultation Cardiovascular: Regular Rate, Regular Rhythm GI/Abdominal Exam: Normal Bowel Sounds, Soft, Non-Tender, No Distention Extremities: Normal Inspection, Non-Tender, Pedal Edema Skin: Warm Psy/Mental Status: Alert, Normal Affect - Problem List & Annotations (1) hemorrhage, delivered SNOMED Code(s): 31684096 Code(s): O72.1 - OTHER IMMEDIATE HEMORRHAGE Status: Acute Priority: High Current Visit: Yes - Problem List Review Problem List Initiated/Reviewed/Updated: Yes - My Orders Last 24 Hours: My Active Orders 11/23/16 21:05 Oxytocin/Normal Saline [Pitocin in NS 20 Units/1,000 ML] 20 unit in 1,000 ml IV STAT fentaNYL [Sublimaze] 50 mcg IVPUSH Q6H PRN 11/23/16 21:55 Lactated Ringers [Ringers, Lactated] 1,000 ml IV ASDIRECTED - Assessment Assessment:: 11/23/2016 Normal Spontaneous Vaginal Delivery Fundus Firm Planning on Bacterial vaginosis Grand multip and parity Anemia in Hemorrhage - Plan Plan:: Lochia normal. hemorrhage resolved. Hgb 7.5 so no transfusion given. Will discharge with iron supplements. Observe today in hospital. Methergine completed. Interested in PP tubal for control.
[2016-11-25] MEDS: Acetaminophen/HYDROcodone 325-5 MG Tab PO PRN ×2 (00:52→09:18)
--- NOTE | 2016-11-25 08:32 | PCM.DCSUM1 ---
Discharge Summary - Hospital Course Free Text/Narrative:: 36 G7 now P7 at 39 0/7 gestational weeks delivered a viable male infant on 11/23 @ 1720 in MATILDA position. APGARS-9/9/10, weight-8lbs 13.7oz, length-21 inches. Delivery was uncomplicated . See delivery note for details. course complicated by hemorrhage estimated at 1800 cc blood loss. Hemoglobin dropped from 10 to 7.4. She was treated with cytotec, IV pitocin and IM and po methergine. No other cause than uterine atony was found. Patient was observed for 24 hours following hemorrhage without significant bleeding. - Discharge Data Discharge Date: 11/25/16 Discharge Disposition: Home, Self-Care 01 Condition: Good - Discharge Diagnosis/Problem(s) (1) hemorrhage, delivered SNOMED Code(s): 19750986 ICD Code: O72.1 - OTHER IMMEDIATE HEMORRHAGE Status: Acute Priority: High Current Visit: Yes (2) Anemia complicating SNOMED Code(s): 12537726 ICD Code: O99.019 - ANEMIA COMPLICATING , UNSPECIFIED TRIMESTER Status: Acute Current Visit: Yes (3) Bacterial vaginosis SNOMED Code(s): 880079086 ICD Code: N76.0 - ACUTE VAGINITIS; B96.89 - OTH BACTERIAL AGENTS THE CAUSE OF DISEASES CLASSD [id number] Status: Acute Current Visit: Yes (4) Grand multipara in labor in third trimester SNOMED Code(s): 127064593, 486247575 ICD Code: O09.43 - SUPRVSN OF W GRAND MULTIPARITY, THIRD TRIMESTER Status: Acute Current Visit: Yes (5) Normal vaginal delivery SNOMED Code(s): 73915288 ICD Code: O80 - ENCOUNTER FOR FULL-TERM UNCOMPLICATED DELIVERY Status: Acute Current Visit: Yes - Patient Summary/Data Complications: hemorrhage - Patient Instructions Diet: Regular Diet as Tolerated Activity: As Tolerated Driving: May Drive Today Showering/Bathing: May Shower Notify Provider of: Fever, Increased Pain, Swelling and Redness, Drainage, Nausea and/or Vomiting Other/Special Instructions: referral for tubal - Discharge Plan Prescriptions/Med Rec: Vit with Ca/FA/Iron [ Plus Iron] 1 each PO DAILY #90 tablet metroNIDAZOLE 500 mg PO BID #24 tablet Home Medications: Home Meds Acetaminophen [Tylenol] 650 mg PO Q4H PRN #0 tablet 11/25/16 [Rx] Vit with Ca/FA/Iron [ Plus Iron] 1 each PO DAILY #90 tablet [Rx] metroNIDAZOLE 500 mg PO BID #24 tablet 11/25/16 [Rx] Referrals: Elia Heredia MD [Physician] - (Desires tubal) - Discharge Summary/Plan Comment DC Time >30 min.: Yes Discharge Summary/Plan Comment: Follow-up in 1 week with Nurse glass bender to follow-up on PPH, anemia and referral for post- tubal. Recommend Ferrous sulfate bid, colace 100 mg bid and metronidazole 500 mg bid for 6 more days. - General Info Date of Service: 11/25/16 Functional Status: Reports: Pain Controlled - Review of Systems General: Reports: No Symptoms HEENT: Reports: No Symptoms Pulmonary: Reports: No Symptoms Cardiovascular: Reports: No Symptoms Gastrointestinal: Reports: No Symptoms Genitourinary: Reports: No Symptoms Musculoskeletal: Reports: No Symptoms Skin: Reports: No Symptoms Neurological: Reports: No Symptoms Psychiatric: Reports: No Symptoms - Patient Data Vitals - Most Recent: Last Vital Signs Temp 97.7 F 11/25/16 08:01 Pulse 71 11/25/16 08:01 Resp 16 11/25/16 08:01 BP 120/62 11/25/16 08:01 Pulse Ox 98 11/25/16 08:01 Weight - Most Recent: 185 lb I&O - Last 24 hours: Intake & Output 11/24/16 11/25/16 11/25/16 22:59 06:59 14:59 Intake Total 2480 Balance 2480 Med Orders - Current: Current Medications Acetaminophen (Tylenol) 650 mg PO Q4H PRN PRN Reason: Pain (Mild 1-3) and fever Last Admin: 11/24/16 12:43 Dose: 650 mg Hydrocodone Bitart/Acetaminophen ([place] 325-5 Mg) 1 - 2 tab PO Q4H PRN PRN Reason: Pain (moderate 4-6) Last Admin: 11/25/16 00:52 Dose: 2 tab Emollient Ointment (Lansinoh Hpa) 1 gm TOP ASDIRECTED PRN PRN Reason: Sore Nipples Fentanyl (Sublimaze) 50 mcg IVPUSH Q6H PRN PRN Reason: Pain (severe 7-10) Last Admin: 11/23/16 21:35 Dose: 25 mcg Ferrous Sulfate (Ferrous Sulfate) 325 mg PO BID YAKELIN Last Admin: 11/24/16 21:02 Dose: 325 mg Metronidazole (Metronidazole) 500 mg PO BID YAKELIN Stop: 11/30/16 09:01 Last Admin: 11/24/16 21:02 Dose: 500 mg Ondansetron HCl (Zofran) 4 mg IV Q4H PRN PRN Reason: Nausea/Vomiting Prenat Multivit/[place]/Iron/Folic Ac ( Plus Iron) 1 each PO DAILY YAKELIN Last Admin: 11/24/16 08:09 Dose: 1 each Sodium Chloride (Saline Flush) 10 ml FLUSH ASDIRECTED PRN PRN Reason: Keep Vein Open Discontinued Medications Carboprost Tromethamine (Hemabate Ds) Confirm Administered Dose 250 mcg .ROUTE .STK-MED ONE Stop: 11/23/16 21:42 Last Admin: 11/23/16 22:36 Dose: Not Given Fentanyl (Sublimaze) 100 mcg IVPUSH Q1H PRN PRN Reason: Pain (moderate 4-6) Last Admin: 11/23/16 14:35 Dose: 100 mcg Oxytocin/Sodium Chloride (Pitocin In Ns 20 Units/1,000 Ml) 20 unit in 1,000 mls @ 6 mls/hr IV TITRATE YAKELIN; 2 MUNITS/MIN PRN Reason: Protocol Last Titration: 11/23/16 14:35 Dose: 9 munits/min, 27 mls/hr Lactated Ringer's (Ringers, Lactated) 1,000 mls @ 999 mls/hr IV .BOLUS ONE Stop: 11/23/16 16:53 Last Admin: 11/23/16 15:18 Dose: 999 mls/hr Ropivacaine (Naropin 0.2%) Confirm Administered Dose 100 mls @ as directed .ROUTE .STK-MED ONE Stop: 11/23/16 16:04 Oxytocin/Sodium Chloride (Pitocin In Ns 20 Units/1,000 Ml) 20 unit in 1,000 mls @ 2,997 mls/hr IV ONETIME ONE; 999 MUNITS/MIN PRN Reason: Protocol Stop: 11/23/16 17:58 Last Admin: 11/23/16 20:25 Dose: Not Given Lactated Ringer's (Ringers, Lactated) 1,000 mls @ 999 mls/hr IV BOLUS ONE Stop: 11/23/16 21:50 Last Admin: 11/23/16 20:50 Dose: 999 mls/hr Lactated Ringer's (Ringers, Lactated) 1,000 mls @ 200 mls/hr IV ASDIRECTED YAKELIN Last Admin: 11/24/16 04:14 Dose: 200 mls/hr Oxytocin/Sodium Chloride (Pitocin In Ns 20 Units/1,000 Ml) 20 unit in 1,000 mls @ 2,997 mls/hr IV STAT YAKELIN; 999 MUNITS/MIN PRN Reason: Protocol Last Admin: 11/23/16 21:10 Dose: 999 munits/min, 2,997 mls/hr Ibuprofen (Motrin) 600 mg PO Q6H PRN PRN Reason: mild pain or fever Last Admin: 11/23/16 18:23 Dose: 600 mg Methylergonovine Maleate (Methergine) 0.2 mg IM Q4H STA Stop: 11/23/16 21:43 Last Admin: 11/23/16 21:48 Dose: 0.2 mg Methylergonovine Maleate (Methergine) 0.2 mg PO Q2H YAKELIN Stop: 11/24/16 06:00 Last Admin: 11/24/16 06:24 Dose: 0.2 mg Misoprostol (Cytotec) 600 mcg RECTAL STAT ONE Stop: 11/23/16 21:00 Last Admin: 11/23/16 21:00 Dose: 600 mcg Misoprostol (Cytotec) Confirm Administered Dose 800 mcg .ROUTE .STK-MED ONE Stop: 11/23/16 21:41 Last Admin: 11/23/16 22:36 Dose: Not Given - Exam General: Reports: Alert, Oriented Lungs: Reports: Clear to Auscultation, Normal Respiratory Effort Cardiovascular: Reports: Regular Rate, Regular Rhythm GI/Abdominal Exam: Normal Bowel Sounds, Soft, Non-Tender, No Organomegaly, No Distention, No Abnormal Bruit, No Mass, Pelvis Stable Extremities: Normal Inspection, Pedal Edema Skin: Reports: Warm, Dry, Intact *Q Meaningful Use (DIS) - VTE *Q VTE Criteria *Q: - Stroke *Q Stroke Criteria *Q: - AMI *Q AMI Criteria *Q:
[2016-11-25] MEDS: Prenatal Multivitamin with Calcium/Folic Acid/Iron Tab PO SCH (09:19)
[2016-11-25] MEDS: metroNIDAZOLE 250 MG Tab PO SCH (09:19)
[2016-11-25] MEDS: Ferrous Sulfate 325 MG Tab PO SCH (09:19)
[2016-11-25 13:38] VITALS: BP 112/67
== END 2016-11-25 12:00 | disposition home or self-care (01) | DRG 774 ==
LOC: JP.OBCHECK 09:37 → JP.OB 09:38 → OBSVTOIN 17:20 → JP.OB 17:20 → JP.MS 20:00
PROVIDERS: ADMIT Advanced Practice Midwife; ATTEND Advanced Practice Midwife
PROC: 00HU33Z Insertion of Infusion Device into Spinal Canal, Percutaneous Approach (ICD-10-PCS; principal; 2016-11-23)
PROC: 10E0XZZ Delivery of Products of Conception, External Approach (ICD-10-PCS; 2016-11-23)
DX: O75.3 Other infection during labor (principal); O72.1 Other immediate postpartum hemorrhage; B96.89 Other specified bacterial agents as the cause of diseases classified elsewhere; Z3A.39 39 weeks gestation of pregnancy; Z37.0 Single live birth; O99.019 Anemia complicating pregnancy, unspecified trimester
CPT/HCPCS: 36415; 80305; 81001; 84112; 85025; 85027; 86850; 86900; 86901; 86920; 86922; A9270-GY; J2210; J2590; J2795; J3010; J7120